=== PATIENT | male | born 1940 | race Caucasian/White ===

== ENCOUNTER 2016-06-05 07:10 | Observation (INO) | payer MEDICARE ==
[2016-06-05] MEDS ORDERED: ASPIRIN CHEWTAB 81 MG TABLET ONE (07:43)
[2016-06-05 07:54] LABS: ABSOLUTE NEUTROPHIL COUNT 8.5 K/mm3 (1.8-7.7); BASO # 0.1 K/mm3 (0.0-0.2); BASO % 0.7 % (0.2-1.0); EOS # 0.4 (0.0-0.5); EOS % 2.9 % (0.9-2.9); HEMATOCRIT 45.1 % (32.0-52.0); HEMOGLOBIN 14.5 gm/l (14.0-18.0); IMM NEUT # 0.1 K/mm3 (0-0.2); IMM NEUT% 0.5 % (0-1); LYMPH # 2.4 (1.0-4.8); LYMPH % 19.3 % (15-45); MEAN CELL VOLUME 94.2 fl (80.0-94.0); MEAN CORPUSCULAR HEMOGLOBIN 30.3 pg (27.0-31.0); MEAN CORPUSCULAR HGB CONC 32.2 g/dl (33.0-37.0); MEAN PLATELET VOLUME 13.4 fl (7.4-10.4); MONO # 0.9 (0.0-0.8); MONO % 7.5 % (4-12); NEUT % 69.1 % (43-75); PLATELET COUNT 161 K/mm3 (130-400); RED CELL DISTRIBUTION WIDTH 14.6 % (11.5-14.5)
[2016-06-05 08:05] LABS: INR 2.82; PROTHROMBIN TIME 31.3 SECONDS (9.3-11.4)
[2016-06-05 08:08] LABS: ALB/GLOB RATIO 1.3 (>1.0); ALBUMIN 4.4 gm/dL (3.5-5.7); CALCIUM 9.7 mg/dL (8.6-10.3); MAGNESIUM 2.1 mg/dL (1.9-2.7)
[2016-06-05 08:09] LABS: TROPONIN I 0.06 ng/ml (0.0-0.06)
--- NOTE | 2016-06-05 08:24 | RAD ---
Exam: Two-view chest COMPARISON: 06/09/2015 and 12/24/2012 INDICATION: Shortness of breath with some chest pain. Recently taken off Lasix and potassium. FINDINGS: PA and lateral views of the chest were obtained. Postsurgical changes of median sternotomy are again appreciated. Single lead pacer remains. Cardiac silhouette is within normal limits and stable. Central pulmonary vasculature has slightly increased, and there is new bibasilar interstitial disease, most compatible with mild pulmonary edema. There is no focal airspace disease or pleural effusion. IMPRESSION: Mild pulmonary edema.
[2016-06-05] MEDS ORDERED: FUROSEMIDE 40 MG/4 ML VIAL ONE (09:48)
[2016-06-05] MEDS ORDERED: POTASSIUM CHLORIDE 20 MEQ TAB.PRT.SR ONE (09:48)
[2016-06-05] MEDS ORDERED: BLISTEX LIPSTICK 1 EACH TP PRN (13:01)
[2016-06-05] MEDS ORDERED: SODIUM CHLORIDE 0.9% 100 ML IV PRN (13:01)
[2016-06-05] MEDS ORDERED: CALCIUM CARBONATE 500 MG TAB.CHEW PO PRN (13:01)
[2016-06-05] MEDS ORDERED: BISACODYL 5 MG TABLET.EC PO PRN (13:01)
[2016-06-05] MEDS ORDERED: BISACODYL 10 MG SUP PR PRN (13:01)
[2016-06-05] MEDS ORDERED: ACETAMINOPHEN 325 MG TABLET PO PRN (13:01)
[2016-06-05] MEDS ORDERED: MENTHOL/CETYLPYRD 1 EACH LOZENGE PO PRN (13:01)
[2016-06-05] MEDS ORDERED: MAGNESIUM HYDROXIDE 30 ML UDCUP PO PRN (13:01)
[2016-06-05] MEDS ORDERED: INSULIN ASPART (DOSE) 100 UNITS/1 ML SUB-Q PRN ×2 (13:07→13:11)
[2016-06-05] MEDS ORDERED: ERGOCALCIFEROL 50,000 UNITS CAPSULE PO SCH (13:15)
[2016-06-05] MEDS ORDERED: LOPERAMIDE HCL 2 MG CAPSULE PO PRN (16:00)
[2016-06-05] MEDS ORDERED: WARFARIN SODIUM 2.5 MG TABLET PO SCH (16:00)
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
[2016-06-05 16:53] VITALS: BMI 34.3
[2016-06-05] MEDS ORDERED: INSULIN ASPART (DOSE) 100 UNITS/1 ML SUB-Q SCH (17:00)
[2016-06-05] MEDS ORDERED: REGADENOSON 0.1 MG DOSE IV ONE (17:45)
[2016-06-05] MEDS: FUROSEMIDE 20 MG/2 ML VIAL IV SCH (18:10)
--- NOTE | 2016-06-05 18:12 | NUC MED ---
MYOCARDIAL PERFUSION STUDY HISTORY: Chest pain and shortness of breath. History of diabetes and myocardial infarct. Family history of heart disease. Prior bypass surgery.. Pharmacologic stress protocol was utilized. 0.4 mg of Lexiscan was administered as pharmacologic stress. Triplanar orthogonal images were reconstructed from SPECT acquisitions during rest and stress phases, gated SPECT acquisition during stress imaging utilized to assess wall motion and ejection fraction. 44.2 mCi of technetium labeled sestamibi was utilized during stress imaging. 14.1mCi of technetium labeled sestamibi was utilized during rest imaging. Imaging was reconstructed on a dedicated workstation. Comparison to 12/23/2013. WALL MOTION: Moderate hypokinesis with septal dyskinesis. EJECTION FRACTION: 49%, compared to 50% previously. PERFUSION DEFECTS: Small fixed defect at the anteroseptal aspect, diminished in prominence when compared to prior study. Thinning probable minor apical thinning. No clear reversible defect identified. ABNORMAL RIGHT HEART UPTAKE: None identified. LEFT VENTRICULAR CAVITY DILATATION WITH STRESS: Not identified. IMPRESSION: 1. Moderate hypokinesis. Septal dyskinesis, which can be seen in the setting of prior bypass surgery. Ejection fraction 49%, grossly unchanged from 2014 study. 2. Redemonstration of anteroseptal defect of small size, compatible with remote infarct, without reversible defect to suggest focal inducible ischemia. Findings discussed with Dr. Barreto of the hospitalist clinical service on 06/05/2016 1809 hours.
[2016-06-05] MEDS ORDERED: SIMVASTATIN 40 MG TABLET PO SCH (20:00)
[2016-06-05] MEDS: METOPROLOL TARTRATE 25 MG TABLET PO SCH (20:56)
[2016-06-05] MEDS ORDERED: DOCUSATE SODIUM 100 MG CAPSULE PO SCH (21:00)
[2016-06-05] MEDS ORDERED: INSULIN GLARGINE (DOSE) 100 UNITS/ML UNIT SUB-Q SCH (21:00)
[2016-06-05] MEDS ORDERED: COENZYME Q10 200 MG PO ONE (23:00)
[2016-06-06 07:28] LABS: CALCIUM 9.6 mg/dL (8.6-10.3); MAGNESIUM 2.1 mg/dL (1.9-2.7)
[2016-06-06] MEDS ORDERED: LEVOTHYROXINE SODIUM 50 MCG TABLET PO SCH (07:30)
[2016-06-06 07:31] LABS: INR 2.54
[2016-06-06 07:32] LABS: TROPONIN I 0.06 ng/ml (0.0-0.06)
[2016-06-06 07:36] LABS: CKMB ISOENZYME 4.7 ng/ml (0.6-6.3)
[2016-06-06] MEDS: FUROSEMIDE 20 MG/2 ML VIAL IV SCH (08:38)
[2016-06-06] MEDS: METOPROLOL TARTRATE 25 MG TABLET PO SCH (08:39)
[2016-06-06] MEDS ORDERED: CLOPIDOGREL BISULFATE 75 MG TABLET PO SCH (09:00)
[2016-06-06] MEDS ORDERED: ISOSORBIDE MONONITRATE 60 MG TAB.SR PO SCH (09:00)
[2016-06-06] MEDS ORDERED: ASPIRIN CHEWTAB 81 MG TABLET PO SCH (09:00)
[2016-06-06] MEDS ORDERED: POTASSIUM CHLORIDE 10 MEQ TAB.SR PO SCH (09:00)
[2016-06-06] MEDS ORDERED: INSULIN GLARGINE (DOSE) 100 UNITS/ML UNIT SUB-Q SCH (09:00)
[2016-06-06] MEDS ORDERED: LOSARTAN POTASSIUM 50 MG TABLET PO SCH (09:00)
--- NOTE | 2016-06-06 10:14 | PDOC5 ---
ADMIT DATE: 06/05/16 DISCHARGE DATE: 06/06/16 ADMISSION DIAGNOSES: exacerbation systolic congestive heart failure; LVEF 35-40% PROCEDURES PERFORMED THIS HOSPITALIZATION: Echocardiogram- LVEF 35-40%, mod calcification aortic valve, SERAFIN 1.3 cm^2, mod aortic stenosis, RVSP 35-40 mmHg Lexiscan Myoview - LVEF 49%, no significant areas of reversible ischemia CONSULTATIONS: none HOSPITAL COURSE: This is a 75 year old male with previous hx CHF, CAD, CKD. He was noted to have an increased creatinine, going from 1.6 to 2.0 in the previous weeks, so Lasix and potassium were stopped. Late last week, early this week, he noted some dypnea, chest discomfort. This progressed until 06/05, when he presented to ED. He was noted to have a BNP of 348. Creatinine was improved at 1.6. Troponin 0.06. Lasix was resumed, and pt had fairly brisk diuresis with improvement in symptoms. He had an echocardiogram performed, and a Lexiscan Myoview. These appeared stable, and did not suggest 3/2 AM, pt reported feeling better respiratory weems, but had had a difficult night, with difficulty sleeping due to bilat leg and foot cramping. Discussion with Dr Osborne, he concurred with resuming diuretic therapy, and was ok with decrease in losartan. Reviewed other therapies, and pt can stop Plavix, as he had his stent more than a year ago. - Exam Vital Signs Temperature 96.9 F 06/06/16 07:25 Pulse Rate 59 06/06/16 07:25 Respiratory Rate 20 06/06/16 07:25 Blood Pressure 139/73 06/06/16 07:25 O2 Saturation by Pulse Oximetry 97 06/06/16 07:25 Oxygen Delivery Method Room Air Oxygen Flow Rate 0 General: Alert, Cooperative, Other (tired from) Lungs: Clear to Auscultation Bilaterally Cardiovascular: Regular Rate and Rhythm (paced) Abdomen: Soft, Normal Bowel Sounds, Non-Distended Extremities: No Edema Skin: Normal Color Neurological: Normal Speech Psych/Mental Status: Other (sl tired from poor sleep) - Results Laboratory 06/06/16 06:20 06/06/16 06/06/16 06/05/16 07:37 06:20 20:56 PT 28.0 H BUN 30 H Estimated GFR 39 L POC Capillary Glucose 130 H 139 H Creatine Kinase 247 H Laboratory Tests 06/06/16 06/06/16 06:20 07:37 INR 2.54 BUN 30 H Creatinine 1.7 H POC Capillary Glucose 130 H Calcium 9.6 Magnesium 2.1 Creatine Kinase 247 H CK-MB (CK-2) 4.7 Troponin I 0.06 Imaging Results: Echo, Lexiscan as above. - Problems:Assessment/Plan (1) Systolic CHF Qualifiers: Congestive heart failure chronicity: acute on chronic Qualifier Code: ( I50.23) Acute on chronic systolic (congestive) heart failure Status: Acute Assessment/Plan: attributed to stopping diuretics. Echo stable, Myoview did not suggest reversible ischemia. Resumed diuretics, follow up with order department supervisor (2) CKD (chronic kidney disease) stage 3, GFR 30-59 ml/min Status: ChronicAssessment/Plan: Need to resume diuretics for CHF; plan reduce losartan. (3) Cardiac pacemaker Status: ChronicAssessment/Plan: Dr Osborne indicates he will probably plan for him to follow up for a dual chamber pacer/resynchronization (4) Diabetes mellitus, type II Status: ChronicAssessment/Plan: Continue home regimen. (5) S/P CABG x 2 Status: InactiveAssessment/Plan: Myoview appears stable. - Disposition: Disposition: anticipate DC to home today - Discharge Plan Instruction Forms: Warfarin Therapy Education Additional Instructions: Your diagnosis is congestive heart failure due to stopping the Lasix (furosemide ) I'd like you to restart the Lasix and the potassium. Also, I'd like you to cut the losartan in half (50 mg) daily (you were previously on 100 mg daily) Since it's been over a year since you had your stent, Dr Osborne suggests you can stop the Plavix (clopidigrel) Please continue on warfarin and aspirin Lastly, due to your kidney function, I want you to HOLD the simvastatin and check with your doctor about a different cholesterol med Please follow up with your order department supervisor in the next 1-2 weeks, to review the echocardiogram, kidney status, and about the pacemaker revision. Prescriptions: Losartan Potassium [COZAAR 50 MG TABLET] 50 mg PO DAILY #30 Potassium Chloride [K-DUR 20 MEQ SR TAB (SHF)] 20 meq PO BID #60 tab.prt.sr Furosemide [Lasix] 40 mg PO BID #60 tab Follow-Up: Ashish Franklin NP [Primary Care Provider] - Edwin Osborne MD [Family Provider] - Condition: Good Disposition: Home
[2016-06-06 12:18] VITALS: BP 103/59
[2016-06-08] MEDS ORDERED: ERGOCALCIFEROL 50,000 UNITS CAPSULE PO SCH (09:00)
[2016-06-10] MEDS ORDERED: WARFARIN SODIUM 5 MG TABLET PO SCH (16:00)
== END 2016-06-06 13:00 | disposition home or self-care (01) ==
LOC: ED 07:10 → MS 10:03 → INTOOBSV 10:03
PROVIDERS: ADMIT Family Medicine; ATTEND Family Medicine
DX: I13.0 Hypertensive heart and chronic kidney disease with heart failure and stage 1 through stage 4 chronic kidney disease, or unspecified chronic kidney disease (principal); N18.3 Chronic kidney disease, stage 3 (moderate); I50.23 Acute on chronic systolic (congestive) heart failure; Z95.0 Presence of cardiac pacemaker; E11.22 Type 2 diabetes mellitus with diabetic chronic kidney disease; I25.10 Atherosclerotic heart disease of native coronary artery without angina pectoris; Z98.61 Coronary angioplasty status
CPT/HCPCS: 83880; 85025; 82550; 82553 ×2; 80048; 80053; 83735 ×2; 85610 ×2; 84484 ×2; 36415; 71020; 78452; 94640; 99284; 96374; 93306; 93017; 93005; 96372 ×2; 99285; A9270 ×15; J1940 ×3; J2785; J1815 ×3; A9500; G0378 ×2